=== PATIENT | male | born 1985 | race Two or more races ===

== ENCOUNTER 2021-12-05 09:45 | Emergency (ER) | payer OTHER ==
[~2021-12-05] VITALS: Ht 180.3 cm; Wt 181.4 kg
[2021-12-05 09:53] VITALS: BP 123/90
--- NOTE | 2021-12-05 11:22 | NUR ---
Patient discharged to home in stable condition. Written and verbal after care instructions given. Patient verbalizes understanding of instruction.
== END 2021-12-05 11:22 | disposition home or self-care (01) ==
LOC: ER 09:45
DX: J30.9 Allergic rhinitis, unspecified (principal); F17.200 Nicotine dependence, unspecified, uncomplicated
CPT/HCPCS: 71045-TC